=== PATIENT | female | born 1985 ===

== ENCOUNTER 2018-06-19 17:24 | Emergency (ER) | payer MEDICAID, OTHER ==
[2018-06-19] MEDS ORDERED: Sodium Chloride 0.9% 1,000 ML IV STA (18:02)
[2018-06-19 18:29] LABS: BASO # 0.1 K/uL (0.0-0.2); BASO % 0.8 % (0.0-2.0); EOS # 0.1 K/uL (0.0-0.7); EOS % 1.8 % (0.0-4.0); LYMPH # 1.6 K/uL (1.0-4.3); LYMPH % 22.5 % (20.0-40.0); MEAN CELL VOLUME 91.4 fl (81.0-99.0); MEAN CORPUSCULAR HEMOGLOBIN 30.3 pg (27.0-31.0); MEAN CORPUSCULAR HGB CONC 33.1 g/dL (33.0-37.0); MEAN PLATELET VOLUME 8.1 fl (7.2-11.7); MONO # 0.7 K/uL (0.0-0.8); MONO % 10.3 % (0.0-10.0); NEUT # 4.5 K/uL (1.8-7.0); NEUT % 64.6 % (50.0-75.0); RBC 4.3 Mil/uL (3.80-5.20); RED CELL DISTRIBUTION WIDTH 15.1 % (11.5-14.5)
--- NOTE | 2018-06-19 18:36 | ED PDOC ---
HPI: Abdomen Time Seen by Provider: 06/19/18 17:33 Chief Complaint (Nursing): Abdominal Pain Chief Complaint (Provider): Abdominal Pain History Per: Patient History/Exam Limitations: no limitations Onset/Duration Of Symptoms: Sudden Onset Current Symptoms Are (Timing): Still Present Additional Complaint(s): Stephen Jansen, a 33 year old female with no significant past medical history, presents to the ED complaining of sudden onset of pelvic pain while at rest. Patient reports pain is constant, nonradiative, sharp, and severe. She states the pain is associated with dysuria, hematuria, and infrequency. She denies nausea, vomiting, diarrhea, constipation, back pain, vaginal discharge, and vaginal bleeding. She reports her last normal menstrual period was May 24. PCP: Chad Gracia I Past Medical History Reviewed: Historical Data, Nursing Documentation, Vital Signs Vital Signs: Last Vital Signs Temp 98.5 F 06/19/18 17:29 Pulse 85 06/19/18 17:29 Resp 16 06/19/18 17:29 BP 143/89 06/19/18 17:29 Pulse Ox 99 06/19/18 17:29 - Medical History PMH: No Chronic Diseases - Surgical History Surgical History: No Surg Hx - Family History Family History: States: No Known Family Hx - Social History Current smoker - smoking cessation education provided: No Alcohol: None Drugs: Denies - Home Medications Home Medications: Ambulatory Orders Medication Instructions Recorded Ibuprofen [Motrin Tab] 600 mg PO Q8 PRN #30 tab 06/19/18 traMADol [Ultram] 50 mg PO TID #15 tab 06/19/18 - Allergies Allergies/Adverse Reactions: Allergies Allergy/AdvReac Type Severity Reaction Status Date / Time No Known Allergies Allergy Verified 06/19/18 17:28 Review of Systems ROS Statement: Except As Marked, All Systems Reviewed And Found Negative Gastrointestinal: Positive for: Abdominal Pain (pelvic pain. constant, sharp, nonradiative, severe, ). Negative for: Nausea, Vomiting, Diarrhea, Constipation Genitourinary Female: Positive for: Dysuria, Frequency, Hematuria. Negative for: Vaginal Discharge, Vaginal Bleeding Musculoskeletal: Negative for: Back Pain Physical Exam - Reviewed Nursing Documentation Reviewed: Yes Vital Signs Reviewed: Yes - Physical Exam Appears: Positive for: In Acute Distress (acute painful distress) Head Exam: Positive for: ATRAUMATIC, NORMOCEPHALIC Skin: Positive for: Warm, Dry Eye Exam: Positive for: EOMI, PERRL Neck: Positive for: Painless ROM, Supple Respiratory: Negative for: Accessory Muscle Use, Respiratory Distress Gastrointestinal/Abdominal: Positive for: Soft, Tenderness (suprapubic tenderness upon palpation). Negative for: Mass, Guarding, Rebound, Other (Mcburney's point tenderness, Apple's sign) Pelvic Exam: Positive for: External Exam Normal, Speculum Exam Normal, Tender A dnexa (R>L), Tender Uterus Back: Positive for: Normal Inspection. Negative for: L CVA Tenderness, R CVA Tenderness Extremity: Positive for: Normal ROM. Negative for: Deformity Lymphatic: Negative for: Adenopathy Neurologic/Psych: Positive for: Alert. Negative for: Motor/Sensory Deficits - Laboratory Results Result Diagrams: 06/19/18 18:25 06/19/18 18:25 - ECG O2 Sat by Pulse Oximetry: 99 (RA) Pulse Ox Interpretation: Normal Medical Decision Making Medical Decision Making: Time: 1758 Initial Impression: abdominal pain. Differential diagnosis includes but not limited to ovarian cyst, ovarian torsion, UTI, kidney stone, abdominal strain, constipation. Initial Plan: --labs --urine test --urine dipstick --Morphine 2 mg IV --US transvaginal 1851 --US transvaginal FINDINGS: UTERUS: Measures 4.4 x 4.6 x 8.8 cm. Normal in size and appearance. No fibroid or other mass lesion seen. ENDOMETRIUM: Measures 8.2 mm in diameter. No ultrasound findings to suggest gestational sac, fluid, debris, mass or polyp or other pathologic process within the endometrium. CERVIX: No cervical abnormality identified. RIGHT OVARY: Measures 2.6 x 3.5 x 4 cm. No solid mass. Normal flow. Complex cyst with septations, thick wall and debris. This measures 1.7 x 2.2 x 2.6 cm. LEFT OVARY: Measures 2.2 x 2.4 x 3.1 cm. No solid mass. Normal flow. Multiple subcentimeter follicles. FREE FLUID: No significant free fluid noted. OTHER FINDINGS: None. IMPRESSION: No evidence of adnexal torsion. Complex right adnexal cyst. Name: STEPHEN JANSEN Exam Date: Jun 19, 2018 8:10:40 PM EST Modality Type: CT Description: CT - ABDOMEN AND PELVIS WITH CORONAL AND SAGITTAL MPRS Gender: F Laterality: Not applicable : 83 Referring Physician: Wendi Quevedo EXAM: CT Abdomen without IV contrast CLINICAL HISTORY: Abd pain right sided pain, r/o nephrolithiasis TECHNIQUE: Axial computed tomography images of the abdomen and pelvis without intravenous contrast. 419.46 mGy-cm CONTRAST: Without COMPARISON: None provided. FINDINGS: LUNG BASES: The lung bases appear clear. No pleural effusions are seen. LIVER: Unremarkable. GALLBLADDER AND BILE DUCTS: The gallbladder appears within normal limits. No radioopaque gallstones are seen. No biliary ductal dilatation is evident. PANCREAS: Unremarkable. SPLEEN: Unremarkable. ADRENAL GLANDS: Unremarkable. KIDNEYS, URETERS, AND BLADDER: The kidneys appear within normal limits. There is no hydronephrosis or hydroureter. No urinary calculi are seen. Uterus appears within normal limits. There is no suspicion of a cystic mass measuring approximately 2.6 x 3.7 cm at the right adnexal region. STOMACH AND BOWEL: Unremarkable appearance of the stomach and bowel. No evidence of bowel obstruction. No evidence suggesting enteritis or colitis. APPENDIX: No evidence of acute appendicitis on CT examination. PERITONEUM: No free fluid. No free air. LYMPH NODES: No lymphadenopathy is evident. VASCULATURE: No evidence of abdominal aortic aneurysm. BONES: No aggressive appearing osseous lesion. No acute osseous pathology evident. IMPRESSION: Liver, spleen, pancreas and gallbladder are within normal limits. No definite mass or obstruction or calculus involving either kidney. Cystic mass right adnexal region measuring approximately 2.6 x 3.7 cm. Clinical correlation and correlation with ultrasound of the pelvis recommended. Dedicated contrast- enhanced CT examination of the abdomen and pelvis may also be considered as clinically warranted. Electronically signed on Jun 19, 2018 8:41:45 PM EST by: Nehemias Flanagan M.D., Certified by [facility], Diagnostic Radiology --------- On reeval, pt feeling better. Stable for discharge. Scribe Attestation: Documented by Jaskaran Siddiqui, acting as a scribe for Wendi Quevedo MD. Provider Scribe Attestation: All medical record entries made by the Scribe were at my direction and personally dictated by me. I have reviewed the chart and agree that the record accurately reflects my personal performance of the history, physical exam, medical decision making, and the department course for this patient. I have also personally directed, reviewed, and agree with the discharge instructions and disposition. Disposition - Clinical Impression Clinical Impression: Ovarian cyst Counseled Patient/Family Regarding: Studies Performed, Diagnosis, Need For Followup, Rx Given - Disposition Disposition: Routine/Home Disposition Time: 21:02 Condition: IMPROVED Additional Instructions: VISITA GARCIA GYNECOLOGO LUNES A CHEQAR DE NUEVO Prescriptions: Ibuprofen [Motrin Tab] 600 mg PO Q8 PRN #30 tab PRN Reason: Pain, Moderate (4-7) traMADol [Ultram] 50 mg PO TID #15 tab Instructions: Ovarian Cyst (DC) Forms: [facility] ED School/Work Excuse Print Language: TURKMEN
[2018-06-19 18:41] LABS: ALB/GLOB RATIO 1.5 (1.0-2.1); ALBUMIN 4.6 g/dL (3.5-5.0); ALT/SGPT 47 U/L (9-52); AST/SGOT 36 U/L (14-36); BLOOD UREA NITROGEN 14 mg/dl (7-17); CALCIUM 9.5 mg/dL (8.4-10.2); GFR NON-AFRICAN AMERICAN > 60
--- NOTE | 2018-06-19 18:56 | US ---
Date of service: 06/19/2018 HISTORY: Abrupt onset plevic pain r/o torsion LMP 05/23/2018 COMPARISON: None available. TECHNIQUE: Transvaginal only. Real -time technique with 2D, duplex and color Doppler FINDINGS: UTERUS: Measures 4.4 x 4.6 x 8.8 cm. Normal in size and appearance. No fibroid or other mass lesion seen. ENDOMETRIUM: Measures 8.2 mm in diameter. No ultrasound findings to suggest gestational sac, fluid, debris, mass or polyp or other pathologic process within the endometrium. CERVIX: No cervical abnormality identified. RIGHT OVARY: Measures 2.6 x 3.5 x 4 cm. No solid mass. Normal flow. Complex cyst with septations, thick wall and debris. This measures 1.7 x 2.2 x 2.6 cm. LEFT OVARY: Measures 2.2 x 2.4 x 3.1 cm. No solid mass. Normal flow. Multiple subcentimeter follicles. FREE FLUID: No significant free fluid noted. OTHER FINDINGS: None. IMPRESSION: No evidence of adnexal torsion. Complex right adnexal cyst.
[2018-06-19 21:35] VITALS: BP 116/68; PULSE 78; RESP 18; TEMP 98.1; O2SAT 100
--- NOTE | 2018-06-20 11:41 | CT ---
Date of service: 06/19/2018 PROCEDURE: CT Abdomen and Pelvis without intravenous contrast HISTORY: RIGHT sided pain r/o nephrolithiasis COMPARISON: None. TECHNIQUE: CT scan of the abdomen and pelvis was performed without contrast. Multiple helical axial images were performed with coronal and sagittal reconstruction.. Contrast dose: No dose was given. Radiation dose: Total exam DLP = 419.46 mGy-cm. This CT exam was performed using one or more of the following dose reduction techniques: Automated exposure control, adjustment of the mA and/or kV according to patient size, and/or use of iterative reconstruction technique. FINDINGS: LOWER THORAX: Unremarkable. LIVER: Noncontrast images of the liver show no evidence of focal mass or intrahepatic ductal dilatation. Note is made of nonspecific calcification in the right lobe of the liver which may reflect prior granulomatous changes. GALLBLADDER AND BILE DUCTS: Unremarkable. PANCREAS: Unremarkable. No gross lesion or ductal dilatation. SPLEEN: Unremarkable. ADRENALS: Unremarkable. No mass. KIDNEYS AND URETERS: Kidneys show no evidence of calculus, perinephric change, or hydronephrosis. Kidneys are normal in size. No periureteral inflammatory changes are noted. No ureteral calculus is seen. VASCULATURE: Unremarkable. No aortic aneurysm. No aortic atherosclerotic calcification or mural plaque present. BOWEL: Unremarkable. No obstruction. No gross mural thickening. No mesenteric thickening is seen. No mesenteric adenopathy is noted. APPENDIX: Unremarkable. Normal appendix. PERITONEUM: Nonspecific mild layering fluid is noted in the pericolic gutter regions. No free intraperitoneal air is identified. LYMPH NODES: Unremarkable. No enlarged lymph nodes. BLADDER: Unremarkable. REPRODUCTIVE: Uterus is top-normal in size but normal in position. No appreciable focal fibroid is noted. A small right adnexal cyst is not excluded posteriorly. This measures 2.5 x 2.3 centimeters. This may suggest follicular cyst. No left adnexal masses are noted. Minor fluid is seen in the pelvis. BONES: No acute fracture. OTHER FINDINGS: None. IMPRESSION: No evidence of obstructive uropathy. No evidence of bowel obstruction. Nonspecific mild paracolic gutter fluid. Small right adnexal cyst. No definite CT scan evidence of appendicitis or bowel obstruction. No appreciable colitis. Ultrasound may prove helpful to further evaluate the adnexal regions of clinically indicated.This agrees with preliminary report provided by the on-call radiologist.
== END 2018-06-19 21:41 | disposition home or self-care (01) ==
LOC: H.ER 17:24
DX: N83.201 Unspecified ovarian cyst, right side (principal)
CPT/HCPCS: 74176; 76830; 80053; 81025; 85025; 96361; 96374; 96376; 99284; J2270; J7030